=== PATIENT | female | born 1990 | race Caucasian/White ===

== ENCOUNTER 2022-12-19 17:17 | Emergency (ER) | payer OTHER ==
[2022-12-19 17:58] LABS: Bilirubin Negative (Negative); Blood, Urine Trace (Negative); Glucose, Urine (Dipstick) Negative (Negative); Ketone, Urine Negative (Negative); Leukocyte Moderate (Negative); Nitrite Negative (Negative); Protein, Urine (Dipstick) Trace mg/dL (Neg-Trace); Urobilinogen 0.2 mg/dL (Less than 2)
[2022-12-19 17:59] LABS: Clarity Hazy (Clear)
[2022-12-19 18:08] LABS: Specific Gravity, Urine 1.024 (1.005-1.030); Squamous Epithelial 0-3 HPF (0-3)
[2022-12-19 18:09] LABS: Bacteria/HPF 1+ HPF (None Seen)
[2022-12-19 18:20] LABS: Wet Prep Clue Cells Clue Cells Absent (None Seen); Wet Prep Trichomonas Trichomonas PRESENT (None Seen)
[2022-12-20 02:29] LABS: Chlam.trachomatis by PCR,Urine Not Detected (NotDetected); GC N.gonorrhoeae PCR,UrineVOID Not Detected (NotDetected)
== END 2022-12-19 18:52 | disposition home or self-care (01) ==
LOC: NAV ERS 17:17
DX: O23.41 Unspecified infection of urinary tract in pregnancy, first trimester (principal); N39.0 Urinary tract infection, site not specified; O98.311 Other infections with a predominantly sexual mode of transmission complicating pregnancy, first trimester; A59.01 Trichomonal vulvovaginitis; Z3A.08 8 weeks gestation of pregnancy
CPT/HCPCS: 81003; 81015; 87210; 87480; 87491; 87510; 87591; 87660; 99283

== ENCOUNTER 2023-06-15 19:18 | Emergency (ER) | payer OTHER ==
[2023-06-15] MEDS ORDERED: Oseltamivir 75 MG CAP ONE (19:34)
== END 2023-06-15 20:07 | disposition home or self-care (01) ==
LOC: NAV ERS 19:18
DX: O98.513 Other viral diseases complicating pregnancy, third trimester (principal); B34.9 Viral infection, unspecified; O13.3 Gestational [pregnancy-induced] hypertension without significant proteinuria, third trimester; Z3A.34 34 weeks gestation of pregnancy
CPT/HCPCS: 99283